=== PATIENT | male | born 1935 | race Caucasian/White ===

== ENCOUNTER 2016-08-11 07:51 | Outpatient (CLI) | payer MEDICARE, OTHER ==
[2016-08-11 08:31] LABS: Hemoglobin 18.2 g/dL (14.0-18.0); Mean Corpuscular HGB CONC 34.5 g/dL (32.0-36.0); Mean Corpuscular Hemoglobin 31.2 pg (27.0-31.0); Mean Corpuscular Volume 90.3 fl (80.0-94.0); Mean Platelet Volume 6.9 fL (7.4-10.4); Platelet Count 198 thou/uL (130-400); RBC Distribution Width 11.8 % (11.5-14.5); Red Blood Cell (RBC) Count 5.82 mill/uL (4.70-6.10); White Blood Cell (WBC) Count 6.7 thou/uL (4.8-10.8)
[2016-08-11 08:35] LABS: ALT (SGPT) 31 U/L (0-55); AST (SGOT) 24 U/L (5-34); Albumin 4.2 g/dL (3.4-4.8); Alkaline Phosphatase 107 U/L (40-150); Anion Gap 13 mmol/L (10-20); BUN (Urea Nitrogen) 8 mg/dL (8.4-25.7); Bilirubin, Total 1.4 mg/dL (0.2-1.2); Calc. Creatinine Clearance 0 mL/min (70-130); Calcium 9.1 mg/dL (7.8-10.44); Carbon Dioxide 23 mmol/L (23-31); Cardiac Risk 4.3 (Less than 4.5); Chloride 108 mmol/L (98-107); Cholesterol 175 mg/dL (< 200 Desired); Estimated GFR-MDRD Greater than 90; Gamma GT (GGT) 33 U/L (12-64); Globulin 2.1 g/dL (2.4-3.5); Glucose 102 mg/dL (83-110); HDL Cholesterol 41 mg/dL (>60 Neg Risk); LDL Cholesterol, Calculated 105 mg/dL; Magnesium 2.4 mg/dL (1.6-2.6); Phosphorus 2.7 mg/dL (2.3-4.7); Potassium 4.4 mmol/L (3.5-5.1); Protein, Total 6.3 g/dL (5.8-8.1); Sodium 140 mmol/L (136-145); Triglycerides 146 mg/dL (Less than 150); Uric Acid 6.1 mg/dL (3.5-7.2)
[2016-08-11 08:49] LABS: T4 5.2 ug/dL (4.87-11.72); Thyroid Stimulating Hormone 1.6592 uIU/mL (0.35-4.94)
== END 2016-08-11 07:52 | disposition home or self-care (01) ==
LOC: MADLAB 07:51
PROVIDERS: ATTEND Internal Medicine Cardiovascular Disease
DX: E78.2 Mixed hyperlipidemia (principal); I10 Essential (primary) hypertension
CPT/HCPCS: 36415; 80053; 80061; 82977; 83615; 83735; 84100; 84436; 84443; 84479; 84550; 85027

== ENCOUNTER 2016-11-24 07:44 | Outpatient (CLI) | payer MEDICARE ==
[2016-11-24 08:49] LABS: Hemoglobin 17.5 g/dL (14.0-18.0); Mean Corpuscular HGB CONC 32.9 g/dL (32.0-36.0); Mean Corpuscular Hemoglobin 30.7 pg (27.0-31.0); Mean Corpuscular Volume 93.1 fl (80.0-94.0); Mean Platelet Volume 6.9 fL (7.4-10.4); Platelet Count 204 thou/uL (130-400); RBC Distribution Width 12.2 % (11.5-14.5); Red Blood Cell (RBC) Count 5.72 mill/uL (4.70-6.10); White Blood Cell (WBC) Count 6.1 thou/uL (4.8-10.8)
[2016-11-24 09:09] LABS: ALT (SGPT) 35 U/L (8-55); AST (SGOT) 30 U/L (5-34); Albumin 4.2 g/dL (3.4-4.8); Alkaline Phosphatase 110 U/L (40-150); Anion Gap 14 mmol/L (10-20); BUN (Urea Nitrogen) 12 mg/dL (8.4-25.7); Bilirubin, Total 1.1 mg/dL (0.2-1.2); Calc. Creatinine Clearance 0 mL/min (70-130); Calcium 9.3 mg/dL (7.8-10.44); Carbon Dioxide 25 mmol/L (23-31); Chloride 108 mmol/L (98-107); Cholesterol 144 mg/dl (< 200 Desired); Estimated GFR-MDRD 84; Globulin 2.7 g/dL (2.4-3.5); Glucose 101 mg/dL (83-110); HDL Cholesterol 36 mg/dL (>60 Neg Risk); LDL Cholesterol, Calculated 76 mg/dL; Magnesium 2.3 mg/dL (1.6-2.6); Phosphorus 3.3 mg/dL (2.3-4.7); Protein, Total 6.9 g/dL (5.8-8.1); Sodium 143 mmol/L (136-145); Triglycerides 162 mg/dL (Less than 150); Uric Acid 6.4 mg/dL (3.5-7.2)
[2016-11-24 17:27] LABS: Gamma GT (GGT) 31 U/L (12-64); LDH 250 U/L (125-220)
[2016-11-24 17:45] LABS: Free Thyroxine Index 1.37 (1.4-3.1); T4 4.8 ug/dL (4.87-11.72)
== END 2016-11-24 07:45 | disposition home or self-care (01) ==
LOC: MADLAB 07:44
PROVIDERS: ATTEND Internal Medicine Cardiovascular Disease
DX: E78.2 Mixed hyperlipidemia (principal); E11.9 Type 2 diabetes mellitus without complications; I25.10 Atherosclerotic heart disease of native coronary artery without angina pectoris; I10 Essential (primary) hypertension
CPT/HCPCS: 36415; 80053; 80061; 82977; 83615; 83735; 84100; 84436; 84443; 84479; 84550; 85027

== ENCOUNTER 2017-06-08 08:45 | Outpatient (CLI) | payer MEDICARE ==
[2017-06-08 13:30] LABS: Hemoglobin 17.3 g/dL (14.0-18.0); Mean Corpuscular HGB CONC 32.3 g/dL (32.0-36.0); Mean Corpuscular Hemoglobin 30.4 pg (27.0-31.0); Mean Corpuscular Volume 94.1 fl (80.0-94.0); Mean Platelet Volume 6.8 fL (7.4-10.4); Platelet Count 204 thou/uL (130-400); RBC Distribution Width 12.4 % (11.5-14.5); Red Blood Cell (RBC) Count 5.68 mill/uL (4.70-6.10); White Blood Cell (WBC) Count 5.7 thou/uL (4.8-10.8)
[2017-06-08 13:45] LABS: ALT (SGPT) 34 U/L (8-55); AST (SGOT) 30 U/L (5-34); Albumin 4.1 g/dL (3.4-4.8); Alkaline Phosphatase 106 U/L (40-150); Anion Gap 16 mmol/L (10-20); BUN (Urea Nitrogen) 9 mg/dL (8.4-25.7); Bilirubin, Total 1.2 mg/dL (0.2-1.2); Calc. Creatinine Clearance 0 mL/min (70-130); Calcium 8.8 mg/dL (7.8-10.44); Carbon Dioxide 24 mmol/L (23-31); Chloride 106 mmol/L (98-107); Cholesterol 160 mg/dl (< 200 Desired); Estimated GFR-MDRD 87; Globulin 2.5 g/dL (2.4-3.5); Glucose 94 mg/dL (83-110); HDL Cholesterol 40 mg/dL (>60 Neg Risk); LDL Cholesterol, Calculated 100 mg/dL; Magnesium 2.2 mg/dL (1.6-2.6); Phosphorus 2.9 mg/dL (2.3-4.7); Potassium 4.2 mmol/L (3.5-5.1); Protein, Total 6.6 g/dL (5.8-8.1); Sodium 142 mmol/L (136-145); Triglycerides 101 mg/dL (Less than 150); Uric Acid 6.2 mg/dL (3.5-7.2)
[2017-06-08 14:17] LABS: Thyroid Stimulating Hormone 0.8919 uIU/mL (0.35-4.94)
[2017-06-08 17:26] LABS: Free Thyroxine Index 1.6 (1.4-3.1); T4 6.2 ug/dL (4.87-11.72)
[2017-06-08 21:18] LABS: Gamma GT (GGT) 33 U/L (12-64); LDH 248 U/L (125-220)
[2017-06-08 21:48] LABS: Follow-up Chemistry Comp? YES; Follow-up Result - Chemistry REPORT FAXED
== END 2017-06-08 08:46 | disposition home or self-care (01) ==
LOC: MADLAB 08:45
PROVIDERS: ATTEND Internal Medicine Cardiovascular Disease
DX: I25.10 Atherosclerotic heart disease of native coronary artery without angina pectoris (principal); E78.2 Mixed hyperlipidemia; I10 Essential (primary) hypertension
CPT/HCPCS: 36415; 80053; 80061; 82977; 83615; 83735; 84100; 84436; 84443; 84479; 84550; 85027

== ENCOUNTER 2017-11-21 16:54 | Emergency (ER) | payer MEDICARE ==
[2017-11-21] MEDS ORDERED: Cephalexin 500 MG CAP ONE (17:29)
[2017-11-21] MEDS ORDERED: Adacel (T-DAP) 0.5 ML VIAL ONE (17:29)
== END 2017-11-21 17:45 | disposition home or self-care (01) ==
LOC: MADERS 16:54
DX: S61.412A Laceration without foreign body of left hand, initial encounter (principal); E78.5 Hyperlipidemia, unspecified; I10 Essential (primary) hypertension; W26.8XXA Contact with other sharp object(s), not elsewhere classified, initial encounter; Y92.009 Unspecified place in unspecified non-institutional (private) residence as the place of occurrence of the external cause
CPT/HCPCS: 12001; 90471; 90715

== ENCOUNTER 2020-02-27 20:22 | Emergency (ER) | payer MEDICARE | END 2020-02-27 21:45 | disposition home or self-care (01) | LOC: MADERS 20:22 | DX: B34.9 Viral infection, unspecified (principal); E78.5 Hyperlipidemia, unspecified; E78.00 Pure hypercholesterolemia, unspecified; I10 Essential (primary) hypertension; Z79.899 Other long term (current) drug therapy | CPT/HCPCS: 87804; 99284 ==

== ENCOUNTER 2024-07-25 08:54 | Emergency (ER) | payer MEDICARE | END 2024-07-25 09:58 | disposition home or self-care (01) | LOC: MADERS 08:54 | DX: S83.91XA Sprain of unspecified site of right knee, initial encounter (principal); I10 Essential (primary) hypertension; E78.00 Pure hypercholesterolemia, unspecified; X50.0XXA Overexertion from strenuous movement or load, initial encounter; Y93.89 Activity, other specified; Z79.82 Long term (current) use of aspirin; Z79.899 Other long term (current) drug therapy | CPT/HCPCS: 99283 ==